=== PATIENT | male | born 2000 | race Caucasian/White ===

== ENCOUNTER → 2019-08-14 17:02 | Outpatient (CLI) | payer OTHER, SELFPAY ==
[2019-08-14 17:59] LABS: Basophils % 0.6 % (0.1-2.0); Eosinophils % 0.8 % (0.1-12.0); Hemoglobin 16.8 g/dL (14.1-18.0); Lymphocytes # 1.9 K/mm3 (0.7-4.5); Lymphocytes % 37.6 % (10-50); Mean Corpuscular HGB Conc 32.2 g/dL (31.8-35.4); Mean Corpuscular Volume 90.1 fl (80-94); Monocytes # 0.4 K/mm3 (0.1-1.0); Monocytes % 6.7 % (1.7-9.3); Neutrophils # 2.8 K/mm3 (1.8-7.8); Neutrophils % 54.2 % (37.0-80.0); Platelet Count 246 K/mm3 (142-424); Red Blood Count 5.77 M/mm3 (4.60-6.20); Red Cell Distribution Width 12.9 % (11.5-17.5); White Blood Count 5.2 K/mm3 (4.5-13.0)
[2019-08-14 18:55] LABS: Alanine Aminotransferase 13 U/L (12-78); Albumin Level 4.8 gm/dL (3.4-5.0); Albumin/Globulin Ratio 1.7 (1.1-1.8); Alkaline Phosphatase 78 U/L (46-116); Amylase 51 U/L (25-115); Anion Gap 15.2 mEq/L (5-15); Aspartate Amino Transferase 6 U/L (15-37); Bilirubin,Total 0.5 mg/dL (0.2-1.0); Blood Urea Nitrogen 8 mg/dL (7-18); Calcium 9.5 mg/dL (8.5-10.1); Carbon Dioxide 25 mmol/L (21.0-32.0); Chloride 102 mmol/L (98-107); Estimated Glomerular Filt Rate 123 ml/min (>60); GFR (African American) 149 ML/MIN (>60); Globulin 2.9 gm/dl (1.3-3.2); Glucose 96 mg/dL (74-106); Lipase 73 u/L (73-393); Potassium 4.2 mmoL/L (3.5-5.1); Sodium 138 mmol/L (136-145); Total Protein,Serum 7.7 gm/dL (6.4-8.2)
[2019-08-16 08:17] LABS: Hep A Ab, IgM Negative (Negative); Hep A Ab, Total Negative (Negative); Hep B Core Ab, Total Negative (Negative)
[2019-08-16 11:45] LABS: Hep B Surface Ab, Qual Non Reactive (.); Hepatitis B Surface Antigen Negative (Negative); Hepatitis C Antibody <0.1 s/co ratio (0.0-0.9)
== END ==
PROVIDERS: Visit Provider Emergency Medicine
DX: R04.2 Hemoptysis (principal); R10.9 Unspecified abdominal pain; R63.0 Anorexia
CPT/HCPCS: 80053; 82150; 83690; 85025; 86704; 86706; 86708; 87340; 87380; 87522

== ENCOUNTER → 2019-10-04 17:33 | Outpatient (CLI) | payer MEDICAID, SELFPAY | PROVIDERS: Visit Provider Emergency Medicine | DX: B19.20 Unspecified viral hepatitis C without hepatic coma (principal); R10.9 Unspecified abdominal pain | CPT/HCPCS: 87522 ==

== ENCOUNTER 2020-05-19 00:10 | Emergency (ER) | payer MEDICAID, SELFPAY ==
[2020-05-19 00:11] VITALS: BP 117/55; PULSE 93; RESP 18; O2SAT 95; BMI 16.7
--- NOTE | 2020-05-19 00:26 | CT_ITS ---
PROCEDURE: CT CERVICAL SPINE WO CON CLINICAL INDICATION: TRAUMA Neck injury with pain, contusion/abrasion or hematoma, cervical sprain/strain, right-sided neck pain and stiffness COMPARISON: CT CSWO CT CERVICAL SPINE W/O CONT from 10/10/2014 TECHNIQUE: Axial images obtained with sagittal and coronal reformats. All CT scans at the facility use one or more dose reduction, viz: automated exposure control, ma/kV adjustment per patient size (including targeted exams where dose is matched to indication, i.e. head), or iterative reconstruction technique. Axial spiral CT scanning performed of the cervical spine beginning at the base of the skull and continuing to the upper T-spine. 3-D multiplanar reconstruction with 3-D manipulation of volumetric data set in image rendering was completed by the radiologist and/or technologist with the supervision of the radiologist on independent workstation. FINDINGS: No fracture nor subluxation is evident. Normal prevertebral soft tissues. Facets, neural foramen and vertebral bodies intact and unremarkable. Normal C1/C2 relationships. Apices of lungs are clear with no acute findings.There is straightening/reversal of the normal lordosis which may be due to patient positioning or muscle spasm. IMPRESSION: No acute fracture. Reversal cervical lordosis Dictated by: Nathan Rosas MD 05/19/2020 06:58 Nathan Rosas MD in [facility] 05/19/2020 06:58
--- NOTE | 2020-05-19 00:26 | CT_ITS ---
PROCEDURE: CT HEAD/BRAIN WO CON CLINICAL INDICATION: TRAUMA Head injury with headache/pain, contusion, abrasion or hematoma COMPARISON: CT HDWO CT HEAD W/O CONTRAST from 08/31/2016 TECHNIQUE: Axial images obtained. All CT scans at the facility use one or more dose reduction, viz: automated exposure control, ma/kV adjustment per patient size (including targeted exams where dose is matched to indication, i.e. head), or iterative reconstruction technique. FINDINGS: No midline shift, mass effect, intracranial hemorrhage, hydrocephalus, or extra-axial fluid collection is evident. The calvarium has an unremarkable appearance. There is opacification of the left mastoid sinus. No sinus air-fluid level. IMPRESSION: No acute intracranial findings. Left mastoid sinus disease Dictated by: Nathan Rosas MD 05/19/2020 06:55 Nathan Rosas MD in [facility] 05/19/2020 06:55
--- NOTE | 2020-05-19 00:26 | ECG_ITS ---
APPROVED REPORT Exam: Resting ECG HR:103 bpm ECG Measurements Heart Rate 103 AXES WI 144 P 74 QRSd 86 QRS 76 QT 324 T 66 QTc 424 <Conclusion> Sinus tachycardia Possible Left atrial enlargement Incomplete RBBB Borderline ECG Electronically signed by : Norm Singleton, 05/19/2020 19:50:22
--- NOTE | 2020-05-19 00:30 | XR_ITS ---
PROCEDURE: XR CHEST 2V CLINICAL HISTORY: fall Posttraumatic pain COMPARISON: CR CXR CHEST(2 VIEWS-NOT PORTABLE) from 06/03/2010 CR CXR CHEST(2 VIEWS-NOT PORTABLE) from 07/30/[address] CHEST W/O CONTRAST from 10/10/2014 CR CXR CHEST(2 VIEWS-NOT PORTABLE) from 12/02/2015 FINDINGS: The cardiomediastinal silhouette and pulmonary vascularity are within normal limits. Calcified node is present in the right perihilar region with a calcified granuloma in the lobe. The remaining clear. No acute bony abnormalities. IMPRESSION: No acute findings. Dictated by: Nathan Rosas MD 05/19/2020 06:39 Nathan Rosas MD in [facility] 05/19/2020 06:39
--- NOTE | 2020-05-19 01:08 | HMH.EDGENADL ---
ED Disposition Clinical Impression: Neck pain Disposition: Home, Self-Care Condition on Discharge: Good Referrals: Dillon Be MD [Primary Care Provider] - - Critical Care Critical Care Time: No Attestation: On 05/19/20, the high probability of a clinically significant, sudden or life threatening deterioration of the following system(s) required my full and direct attention, intervention and personal management. The time I documented below is in addition to time spent performing reported procedures but includes the following listed in this critical care notation. Medical Decision Making - Ramy Inquiry Pt receiving controlled substance: No Vital Signs: 05/19/20 00:11 05/19/20 01:17 Pulse Rate [Right Brachial] 93 H 92 H Respiratory Rate 18 18 Blood Pressure [Right Arm] 117/55 L 119/61 Blood Pressure Mean [Right Arm] 75 80 02 Sat by Pulse Oximetry 95 97 Oxygen Delivery Method Room Air Orders (Tests/Meds): ORDERS Category Date Time Status CT cervical spine wo con Stat Cat Scan 05/19/20 00:[address] head/brain wo con Stat Cat Scan 05/19/20 00:26 Taken Chest XR 2 view (NOT portable) [XR chest 2V] Stat Exams 05/19/20 00:30 Taken EKG Request [ECG Request by /Mariela] Stat Y 05/19/20 00:26 Ordered Medical Decision Narrative: In summary patient presents after a fall. Patient had head trauma but no loss of consciousness, patient on blood thinners. Patient has nonfocal logical exam at this time. Patient complaining of midline spine pain. On examination patient does have tenderness to palpation midline C-spine, patient does not meet Nexus criteria at this time. Due to this patient had CT head and C-spine ordered. These were negative on repeat examination, patient also had chest x-ray and EKG ordered, chest x-ray without acute abnormalities, no fractures, EKG normal 2. Patient discharged home, follow-up with his primary care doctor for further work-up. General Adult HPI - General Chief complaint: Back Pain/Injury Stated complaint: Back neck pain,headache Time Seen by Provider: 05/19/20 00:38 Mode of Arrival: Ambulatory Limitations: No Limitations Description of Symptoms (Recalled from ER Triage Doc. by RN): pt fell from a standing position of a post. no LOC pt c/o of SMITH, medial neck pain and medial lower back pain. - History of Present Illness HPI narrative: Patient presents after a fall. Patient states he was 2 feet high, fell back when he was planting ordonez in the garden. Patient did have head trauma but no loss of consciousness, patient has pain in his neck, started after his fall. Patient has no weakness one side of his body or another, no numbness or tingling, no focal neurological issues. Patient not on blood thinners, no medical problems, surgical history. Patient also complains of chest pain, denies any abdominal pain, pain in extremities. Patient presents with mom at bedside. - Related Data Home Medications Medication Instructions Recorded Confirmed Pantoprazole Sodium [Protonix 40mg 40 mg PO DAILY 10/04/19 10/18/19 tablet] Allergies Allergy/AdvReac Type Severity Reaction Status Date / Time No Known Allergies Allergy Verified 10/18/19 10:56 [facility] History - Hepatitis A Screen Drug use history?: No High risk sexual behaviors?: No History of sexually transmitted infection?: No Currently employed?: No Childcare worker?: No Do you have indoor plumbing?: Yes Do you have electricity?: Yes Attestation statement:: This patient has been screened for Hepatitis A risk factors. I have reviewed the patient's past medical history: Yes Medical History: Reports:: Gastroesophageal Reflux Disease(GERD) Denies:: Cancer, Diabetes Mellitus Type 1, Diabetes Mellitus Type 2, Internal Pacemaker, MRSA, Seizures Other Medical History: Denies: Blood Transfusion Reaction Other Surgeries: Yes: No Previous Surgery, EGD, Other. No: Pacemaker Amputation: No Fractures:
[2020-05-19 01:17] VITALS: BP 119/61; PULSE 92; RESP 18; O2SAT 97
[2020-05-19 01:34] VITALS: BP 118/71; PULSE 67; RESP 16; TEMP 36.6
== END 2020-05-19 01:35 | disposition home or self-care (01) ==
PROVIDERS: Emergency Provider Emergency Medicine; PCP Emergency Medicine
DX: M54.2 Cervicalgia (principal); R51 Headache; W01.0XXA Fall on same level from slipping, tripping and stumbling without subsequent striking against object, initial encounter; Y93.H2 Activity, gardening and landscaping; Y92.017 Garden or yard in single-family (private) house as the place of occurrence of the external cause; K21.9 Gastro-esophageal reflux disease without esophagitis
CPT/HCPCS: 70450; 71046; 72125; 93005; 99283

== ENCOUNTER 2020-05-22 21:09 | Emergency (ER) | payer MEDICAID, SELFPAY ==
--- NOTE | 2020-05-21 21:08 | ECG_ITS ---
APPROVED REPORT Exam: Resting ECG HR:91 bpm ECG Measurements Heart Rate 91 AXES WV 130 P 71 QRSd 84 QRS 78 QT 324 T 74 QTc 398 <Conclusion> Normal sinus rhythm Normal ECG Electronically signed by : Daren Alcaraz, 05/24/2020 06:35:17
[2020-05-22 21:09] VITALS: BP 135/85; PULSE 118; RESP 18; TEMP 37.1; O2SAT 95; BMI 16.7
--- NOTE | 2020-05-22 21:21 | HMH.EDCP ---
ED Disposition Clinical Impression: Costochondritis Disposition: Home, Self-Care Condition on Discharge: Good Additional Instructions: Take Tylenol/ibuprofen as needed for pain. Avoid smoking marijuana as this could exacerbate symptoms due to coughing. Follow-up with primary care physician. Referrals: Dillon Be MD [Primary Care Provider] - - Critical Care Critical Care Time: No Attestation: On 05/22/20, the high probability of a clinically significant, sudden or life threatening deterioration of the following system(s) required my full and direct attention, intervention and personal management. The time I documented below is in addition to time spent performing reported procedures but includes the following listed in this critical care notation. Medical Decision Making - Medical Records Medical records reviewed: Yes: I reviewed the patient's medical records. - Ramy Inquiry Pt receiving controlled substance: No Vital Signs: 05/22/20 21:09 05/22/20 21:30 Temperature 98.8 F Temperature Source Oral Pulse Rate [Right] 118 H 74 Respiratory Rate 18 18 Blood Pressure [Right Arm] 135/85 112/74 Blood Pressure Mean [Right Arm] 101 86 Blood Pressure Source [Right Arm] Automatic Cuff Automatic Cuff Blood Pressure Position [Right Arm] Supine Supine 02 Sat by Pulse Oximetry 95 96 Oxygen Delivery Method Room Air Room Air - Lab Data Lab Results 05/22/20 21:10: WBC 6.8, RBC 5.45, Hgb 17.0, Hct 47.3, MCV 86.7, MCH 31.2, MCHC 36.0 H, RDW 13.1, Plt Count 243, MPV 8.0, Neut % (Auto) 61.1, Lymph % (Auto) 32.5, Isabela % (Auto) 5.6, Eos % (Auto) 0.3, Baso % (Auto) 0.5, Neut # (Auto) 4.2, Lymph # (Auto) 2.2, Isabela # (Auto) 0.4, Eos # (Auto) 0.0, Baso # (Auto) 0.0 05/22/20 21:10: Sodium 142, Potassium 3.7, Chloride 102, Carbon Dioxide 29, Anion Gap 14.7, BUN 12, Creatinine 0.80, Estimated Creat Clear 103, Estimated GFR 122, Est GFR ( Amer) 148, Glucose 97, Calcium 10.2, Troponin I < 0.01 Result diagrams: 05/22/20 21:10 05/22/20 21:10 Orders (Tests/Meds): ORDERS Category Date Time Status XR chest 2V Stat Exams 05/22/20 21:23 Taken Troponin I Q3H Lab 05/23/20 00:30 Ordered Troponin I Q3H Lab 05/23/20 03:30 Ordered Medical Decision Narrative: 19-year-old male with history of anxiety and marijuana use who presents emergency department for evaluation chest pain. Pain has been present since last Wednesday and is worse with deep inspiration. Patient has history of marijuana use that causes him to cough often, sometimes violently. Differential diagnosis includes but is not limited to pleurisy, costochondritis, myocardial infarction, anxiety attack, and less likely PE. PERC negative. Labs obtained and normal with no acute electrolyte abnormalities requiring correction. Troponin negative. Due to duration of symptoms being greater than 4 days, low concern for cardiac chest pain and no second troponin indicated at this time. EKG obtained immediately upon arrival negative for acute ST elevation, ST depression, or T wave inversions concerning for ACS. Chest x-ray obtained and negative for evidence of pneumonia or pneumothorax, with no identified rib fractures. Patient remained hemodynamically stable in emergency department symptoms are well controlled at this time. Advised on strict return precautions and the importance of following up with PCP. Advised to stop smoking marijuana as this could exacerbate symptoms. Advised on treatment of pain with [id number]-nhvusfw medications. Safe to discharge at this time. Chest Pain HPI - General Stated Complaint: Chest Pain Time Seen by Provider: 05/22/20 21:15 Mode of Arrival: Ambulatory Source of Information: Patient Limitations: No Limitations - History of Present Illness HPI narrative: 19-year-old male with past medical history of anxiety and marijuana use who presents the emergency department for evaluation of chest pain. Patient states that chest pain
--- NOTE | 2020-05-22 21:23 | XR_ITS ---
PROCEDURE: XR CHEST 2V CLINICAL HISTORY: chest pain COMPARISON: CR CXR CHEST(2 VIEWS-NOT PORTABLE) from 07/30/[address] CHEST W/O CONTRAST from 10/10/2014 CR CXR CHEST(2 VIEWS-NOT PORTABLE) from 12/02/2015 CR XR CHEST 2V from 05/19/2020 FINDINGS: The cardiomediastinal silhouette and pulmonary vascularity are within normal limits. The lungs are clear without infiltrates, suspicious nodules, or pleural effusions. No acute bony abnormalities. IMPRESSION: No acute findings. Dictated by: Nathan Rosas MD 05/23/2020 05:26 Nathan Rosas MD in [facility] 05/23/2020 05:26
[2020-05-22 21:30] VITALS: BP 112/74; PULSE 74; RESP 18; O2SAT 96
[2020-05-22 22:00] VITALS: BP 124/78; PULSE 79; RESP 18; O2SAT 98
[2020-05-22 22:09] LABS: Basophils % 0.5 % (0.1-2.0); Eosinophils % 0.3 % (0.1-12.0); Hematocrit 47.3 % (42.0-52.0); Lymphocytes # 2.2 K/mm3 (0.7-4.5); Lymphocytes % 32.5 % (10-50); Mean Corpuscular Hemoglobin 31.2 pg (27.0-31.2); Mean Corpuscular Volume 86.7 fl (80-94); Monocytes # 0.4 K/mm3 (0.1-1.0); Monocytes % 5.6 % (1.7-9.3); Neutrophils # 4.2 K/mm3 (1.8-7.8); Neutrophils % 61.1 % (37.0-80.0); Platelet Count 243 K/mm3 (142-424); Red Blood Count 5.45 M/mm3 (4.60-6.20); Red Cell Distribution Width 13.1 % (11.5-17.5); White Blood Count 6.8 K/mm3 (4.8-10.8)
[2020-05-22 22:14] LABS: Chloride 102 mmol/L (98-107); Potassium 3.7 mmoL/L (3.5-5.1); Sodium 142 mmol/L (136-145)
[2020-05-22 22:17] LABS: Anion Gap 14.7 mEq/L (5-15); Blood Urea Nitrogen 12 mg/dl (9-20); Calcium 10.2 mg/dl (8.4-10.2); Carbon Dioxide 29 mmol/L (22.0-30.0); Creatinine Clearance Estimated 103 mL/min (50-200); Estimated Glomerular Filt Rate 122 ml/min (>60); GFR (African American) 148 ML/MIN (>60); Glucose 97 mg/dl (74-100)
[2020-05-22 22:30] VITALS: BP 121/79; PULSE 94; RESP 18; O2SAT 98
[2020-05-22 22:36] LABS: Troponin I < 0.01 ng/ml (0.00-0.034)
[2020-05-22 22:56] VITALS: BP 112/74; PULSE 75; RESP 16; TEMP 37.1; O2SAT 99
== END 2020-05-22 22:58 | disposition home or self-care (01) ==
PROVIDERS: Emergency Provider Emergency Medicine; PCP Emergency Medicine
DX: M94.0 Chondrocostal junction syndrome [Tietze] (principal); K21.9 Gastro-esophageal reflux disease without esophagitis; F41.9 Anxiety disorder, unspecified; F12.10 Cannabis abuse, uncomplicated
CPT/HCPCS: 71046; 80048; 84484; 85025; 93005; 99283

== ENCOUNTER 2020-05-27 09:23 | Emergency (ER) | payer MEDICAID, SELFPAY ==
--- NOTE | 2020-05-27 09:35 | US_ITS ---
PROCEDURE: US TESTICULAR CLINICAL INDICATION: pain Left testicular pain with possible lump COMPARISON: No exams were available for comparison FINDINGS: The right testicle is 4.5 x 2.4 x 3.2 cm. Blood flow is present. No testicular or scrotal mass on the right. Left testicle is 4.4 x 2.4 x 2.9 cm with blood flow noted to the testicle. There is a small left varicocele which may account for the palpable abnormality. IMPRESSION: Small left varicocele otherwise negative testicular ultrasound Dictated by: Nathan Rosas MD 05/27/2020 13:23 Nathan Rosas MD in [facility] 05/27/2020 13:23
[2020-05-27 09:41] VITALS: BP 140/83; PULSE 99; RESP 18; TEMP 36.7; O2SAT 100; BMI 17.2
[2020-05-27 10:20] LABS: Microscopic, Urine URINE MICROSCOPIC (MICROSCOPIC)
[2020-05-27 10:26] LABS: Appearance,Urine CLEAR (Clear); Bilirubin,Urine Negative (Negative); Blood, Urine Negative (Negative); Color,Urine YELLOW (Yellow); Glucose,Urine (UA) Negative (Negative); Ketones,Urine Negative (Negative); Leukocyte Esterase,Urine Negative (Negative); Nitrate,Urine Negative (Negative); Protein,Urine TRACE (Negative); Specific Gravity, Urine 1.025 (1.005-1.030); Urobilinogen,Urine 0.2 EU/dl (0.2)
[2020-05-27 10:44] LABS: RBC,Urine Occasional #/hpf (0-3); Squamous Epithelial Cell,Urine Occasional #/hpf (0-5); WBC,Urine Occasional #/hpf (0-3)
[2020-05-27 10:45] LABS: Bacteria,Urine 2+ /lpf
--- NOTE | 2020-05-27 12:53 | HMH.EDGENADL ---
ED Disposition Clinical Impression: Left varicocele UTI (urinary tract infection) Qualifiers: Urinary tract infection type: acute cystitis Hematuria presence: without hematuria Qualified Code(s): N30.00 - Acute cystitis without hematuria Disposition: Home, Self-Care Condition on Discharge: Good Instructions: DI for Varicocele Prescriptions: Ibuprofen [Ibuprofen 800mg Tablet] 800 mg PO TIDP PRN #20 tab PRN Reason: Moderate Pain Transmission Status: Pending to [facility] cephALEXin [Keflex 500mg Cap] 500 mg PO BID 7 Days #14 cap Transmission Status: Pending to [facility] Referrals: Dillon Be MD [Primary Care Provider] - Gustavo Tee MD [Staff Physician] - - Critical Care Critical Care Time: No Attestation: On 05/27/20, the high probability of a clinically significant, sudden or life threatening deterioration of the following system(s) required my full and direct attention, intervention and personal management. The time I documented below is in addition to time spent performing reported procedures but includes the following listed in this critical care notation. Medical Decision Making - Medical Records Medical records reviewed: Yes: I reviewed the patient's medical records. - Ramy Inquiry Pt receiving controlled substance: No Vital Signs: 05/27/20 09:41 Temperature 98.1 F Temperature Source Oral Pulse Rate [Radial] 99 H Respiratory Rate 18 Blood Pressure [Right Arm] 140/83 Blood Pressure Mean [Right Arm] 102 Blood Pressure Source [Right Arm] Automatic Cuff Blood Pressure Position [Right Arm] Sitting 02 Sat by Pulse Oximetry 100 Oxygen Delivery Method Room Air - Lab Data Lab Results 05/27/20 09:35: Urine Color Yellow, Urine Appearance Clear, Urine pH 6.0, Ur Specific [place] 1.025, Urine Protein Trace, Urine Glucose (UA) Negative, Urine Ketones Negative, Urine Blood Negative, Urine Nitrate Negative, Urine Bilirubin Negative, Urine Urobilinogen 0.2, Ur Leukocyte Esterase Negative, Urine RBC Occasional, Urine WBC Occasional, Ur Squamous Epith Cells Occasional, Urine Bacteria 2+ Orders (Tests/Meds): ED MEDICATIONS Discontinued Medications Generic Name Dose Route Start Last Admin Trade Name Freq PRN Reason Stop Dose Admin Ibuprofen 800 mg 05/27/20 09:35 05/27/20 09:48 Motrin 400mg Tablet PO 05/27/20 09:36 800 mg ONCE ONE Administration ORDERS Category Date Time Status Urine Culture Stat Micro 05/27/20 09:35 Received - Radiology Data #1 Image(s): Other (US scrotum) IMPRESSION: Small left varicocele otherwise negative testicular ultrasound - Reevaluation(s) Time: 13:32 Reevaluation #1: On reevaluation, patient is feeling better. Does have evidence of a small varicocele. Likely contributing to his discomfort. There is also some bacteria in his urine, however appears to be contaminated. Patient will be on a short course of antibiotics. Given follow-up with urology. Given strict return precautions. Verbalized understanding. Medical Decision Narrative: 19-year-old male presenting with testicular pain. Ultrasound will be obtained for possible torsion. Work-up initiated. General Adult HPI - General Chief complaint: PAIN Stated complaint: penis pain Time Seen by Provider: 05/27/20 09:45 Mode of Arrival: Ambulatory Limitations: No Limitations Description of Symptoms (Recalled from ER Triage Doc. by RN): States that he has had left testicle pain since 8 am. states there is a knot on the left testicle. - History of Present Illness HPI narrative: This is a 19-year-old male presenting to the emergency department with testicular pain. Patient states that he woke up this morning and he felt a knot in his left testicle. He had never noticed this before. He states that he started manipulating it and had some tenderness. It is dull in nature. Nonradiating. He is not having any associated hematuria. No fevers
[2020-05-27 13:49] VITALS: BP 130/69; PULSE 87; RESP 20; TEMP 37; O2SAT 100
== END 2020-05-27 13:51 | disposition home or self-care (01) ==
PROVIDERS: Emergency Provider Emergency Medicine; PCP Emergency Medicine
DX: I86.1 Scrotal varices (principal); N30.00 Acute cystitis without hematuria; K21.9 Gastro-esophageal reflux disease without esophagitis
CPT/HCPCS: 76870; 81001; 87086; 99282

== ENCOUNTER → 2020-06-04 17:30 | Outpatient (CLI) | payer MEDICAID, SELFPAY ==
[2020-06-04 18:39] LABS: Basophils # 0.1 K/mm3 (0-0.2); Basophils % 0.5 % (0.1-2.0); Eosinophils % 0.3 % (0.1-12.0); Hematocrit 46.3 % (42.0-52.0); Hemoglobin 15.7 g/dL (14.1-18.0); Lymphocytes # 2.4 K/mm3 (0.7-4.5); Lymphocytes % 20.3 % (10-50); Mean Corpuscular HGB Conc 33.8 g/dL (31.8-35.4); Mean Corpuscular Volume 88.6 fl (80-94); Mean Platelet Volume 8.6 fl (7.4-10.4); Monocytes # 0.5 K/mm3 (0.1-1.0); Monocytes % 3.9 % (1.7-9.3); Neutrophils # 8.7 K/mm3 (1.8-7.8); Platelet Count 275 K/mm3 (142-424); Red Blood Count 5.22 M/mm3 (4.60-6.20); Red Cell Distribution Width 13.2 % (11.5-17.5); White Blood Count 11.6 K/mm3 (4.8-10.8)
[2020-06-04 18:43] LABS: Chloride 102 mmol/L (98-107); Sodium 141 mmol/L (136-145)
[2020-06-04 18:45] LABS: Blood Urea Nitrogen 15 mg/dl (9-20); Estimated Glomerular Filt Rate 142 ml/min (>60); GFR (African American) 172 ML/MIN (>60)
[2020-06-04 18:46] LABS: Alanine Aminotransferase 12 U/L (12-78); Albumin Level 4.7 g/dl (3.5-5.0); Albumin/Globulin Ratio 1.8 (1.1-1.8); Alkaline Phosphatase 57 U/L (38-126); Aspartate Amino Transferase 18 U/L (17-59); Bilirubin,Total 0.6 mg/dl (0.2-1.3); Calcium 9.8 mg/dl (8.4-10.2); Carbon Dioxide 27 mmol/L (22.0-30.0); Globulin 2.6 g/dL (1.3-3.2); Glucose 126 mg/dl (74-100); Total Protein,Serum 7.3 g/dl (6.3-8.2)
[2020-06-04 19:03] LABS: Erythrocyte Sedimentation Rate 4 mm/hr (0-15)
== END ==
PROVIDERS: Visit Provider Emergency Medicine
DX: R53.83 Other fatigue (principal)
CPT/HCPCS: 80053; 85025; 85651

== ENCOUNTER 2020-06-21 15:00 | Outpatient (RCR) | payer MEDICAID, SELFPAY ==
--- NOTE | 2020-06-12 10:57 | HMH.PTOPEV ---
PT Outpatient Evaluation Rehab PT Outpatient Evaluation Start: 06/12/20 10:45 Freq: Status: Active Protocol: Document 06/12/20 10:45 THU (Rec: 06/12/20 10:56 THU [id number]) Electronically Signed By Mann Apple, PT 06/12/20 10:45 Outpatient Therapy Subjective History Subjective History Patient is a 19 year old male presenting to outpatient PT with reports of R cervicothoracic spine pain starting approximately 1 month ago after a fall at home landing on his head. Cranial and C-spine CT scans negative. Main complaint is CT junction pain. No reports of radicular symptoms. No other comrobidities to report. Chief Complaint Pain,Stiff Symptom Type Sharp Symptoms Relieved By Rest/Positioning,Ice,OTC Meds Symptoms Aggravated By Sitting Prior Functional Limitations None Current Functional Limitations Reaching,Lifting,Sitting Level of pain today (0-10) 6 Pain scale - at its best (0-10) 3 Pain scale - at its worst (0-10) 8 Cervical Eval Palpation Cervical Muscles R Cervical Paraspinal,R Upper Trapezius,R Thoracic Paraspinals Posture Head/C-Spine Posture Sitting Position C-Spine Flattened Head/C-Spine Posture Standing Position C-Spine Flattened Flexibility Deficits Upper Trapezius Muscle Length (R) Mild Tightness Levaetor Scapulae Muscle Length (R) Mild Tightness Pectoralis Minor Muscle Length (R) Mild Tightness Passive Joint Mobility Cervical PIVM WNL: R OA L OA R AA L AA R C2/3 L C2/3 R C3/4 L C3/4 R C4/5 L C4/5 R C5/6 L C5/6 R C6/7 L C6/7 R C7/T1 L C7/T1 AROM Cervical Spine Extension Active Range of 54 pain Motion (degrees) Cervical Spine Flexion Active Range of 44 Motion (degrees) Cervical Spine Right Lateral Flexion 36 Active Range of Motion (degrees) Cervical Spine Left Lateral Flexion 44 Active Range of Mot
== END 2020-06-21 16:03 | disposition home or self-care (01) ==
LOC: PT 15:00
PROVIDERS: Visit Provider Emergency Medicine
DX: M54.2 Cervicalgia (principal)
CPT/HCPCS: 97010; 97014; 97035; 97110; 97163; G0283

== ENCOUNTER → 2020-07-02 13:01 | Outpatient (CLI) | payer MEDICAID, SELFPAY ==
--- NOTE | 2020-07-02 13:01 | MR_ITS ---
PROCEDURE: MR HEAD/BRAIN WO CON CLINICAL INDICATION: headaches and dizziness PT C/O HEADACHES AND DIZZINESS SINCE FALL ON 05/19/20 COMPARISON: CT CT HEAD/BRAIN WO CON from 05/19/2020 TECHNIQUE: Routine multiplanar multi echo sequences are performed without gadolinium enhancement. FINDINGS: No midline shift, mass effect, intracranial hemorrhage, or hydrocephalus is evident. The cerebellopontine angles, cerebellum, and brainstem have an unremarkable appearance. Unremarkable white matter signal intensity. No evidence of acute infarction. The hippocampal gyri and temporal lobes have an unremarkable appearance. The pituitary, optic chiasm, corpus callosum, and craniocervical junction are unremarkable. There is a small amount fluid signal intensity in both mastoid sinuses slightly more prominent on the left. Small retention cyst is present in the left maxillary sinus anteriorly. IMPRESSION: 1. No acute intracranial findings. 2. Bilateral mastoid effusions Dictated by: Nathan Rosas MD 07/03/2020 10:41 Nathan Rosas MD in [facility] 07/03/2020 10:41
--- NOTE | 2020-07-02 13:01 | MR_ITS ---
PROCEDURE: MR CERVICAL SPINE WO CON CLINICAL INDICATION: neck pain PT C/O HEADACHES AND DIZZINESS AND NECK PAIN SINCE FALL COMPARISON: No exams were available for comparison TECHNIQUE: Standard multiplanar multiecho sequences are performed without contrast. 3-D MIP and myelographic images are also rendered and reviewed FINDINGS: Nonspecific straightening of the cervical lordosis. The disc spaces are well preserved. No disc herniation. No canal stenosis or foraminal stenosis. No significant degenerative change. Spinal cord has an unremarkable appearance. The craniocervical junction is unremarkable. IMPRESSION: Negative MRI of the cervical spine Dictated by: Nathan Rosas MD 07/03/2020 11:45 Nathan Rosas MD in [facility] 07/03/2020 11:45
== END ==
PROVIDERS: PCP Emergency Medicine; Visit Provider Emergency Medicine
DX: R42 Dizziness and giddiness; M54.2 Cervicalgia; R51.9 Headache, unspecified
CPT/HCPCS: 70551; 72141; 76376

== ENCOUNTER → 2022-09-18 16:00 | Outpatient (CLI) | payer MEDICAID, SELFPAY ==
[2022-09-22 21:12] LABS: Neisseria gonorrhoeae, NAA Negative (Negative)
== END ==
PROVIDERS: PCP Nurse Practitioner Family; Visit Provider Nurse Practitioner Family
DX: Z20.2 Contact with and (suspected) exposure to infections with a predominantly sexual mode of transmission (principal)
CPT/HCPCS: 87491; 87591

== ENCOUNTER 2022-09-18 17:40 | Emergency (ER) | payer MEDICAID, SELFPAY ==
[2022-09-18 19:11] VITALS: BP 124/75; PULSE 85; RESP 16; TEMP 36.7; O2SAT 98; BMI 21.2
--- NOTE | 2022-09-18 19:16 | EXP.UTC ---
Discharge Plan Disposition Patient Disposition: Home, Self-Care Condition: Good Prescriptions Prescriptions: New albuterol sulfate [Proventil HFA] 90 mcg/actuation HFA aerosol inhaler 1 inh inhalation Q6H PRN (Reason: shortness of breath or wheezing) Qty: 8.5 0RF ospjrcwahmqmbru-xnotljajo-YE [Bromfed DM] 2-30-10 mg/5 mL Syrup 10 ml PO Q4H PRN (Reason: Cough) Qty: 200 0RF amoxicillin-pot clavulanate 875-125 mg Tablet 1 tab PO Q12H Qty: 20 0RF fluticasone propionate [Flonase Allergy Relief] 50 mcg/actuation spray,suspension 1 spray intranasal DAILY Qty: 16 0RF Rx Instructions: administer into each nostril Referrals Follow up/Referrals: Dillon Be MD [Primary Care Provider] - See instructions Activity Restrictions/Add. Instructions Additional Instructions/Restrictions: Start antibiotic today. Be sure to complete entire prescription even if feeling better Monitor temp. Tylenol every 4 hours as needed and / or ibuprofen every 6 hours as needed ( As long as your primary care physician has told you that it ok to take both. For fever/aches/pains ER if no less than 101 despite Tylenol or Motrin Humidifier/vaporizer or hot steamy shower Inhaler every 4-6 hours as needed like we discussed. If unsure how to use it, ask pharmacist to demonstrate how. Should help open airways and improve cough, wheezing, and shortness of breath *Flonase 1 sprays in each nostril daily but be aware that it may take 2-3 days before you notice improvement *Bromfed may cause drowsiness. Know how it effects you before driving, caring for small child, . No other antihistamines/allergy medications while taking bromfed *Start steroid today. Helps with inflammation therefore, cough and wheezing. Follow directions on the package. Reviewed side effects. Patient reports taking them before. Follow up IMMEDIATELY for new or worsening of symptoms OR no noticeable improvement over the next 48-72 hours. 911 immediately for any life threatening symptoms such as chest pain or difficulty breathing Clinical Impressions Clinical Impression: Sinusitis Instructions Patient Instructions: DI for Sinusitis, Sinusitis Discharge ED Provider: Lee Ann Marlow [facility] [place] HPI General Stated complaint: lissa, cough Mode of Arrival: Ambulatory Source of Information: Patient Limitations: No Limitations Time Seen by Provider: 09/18/22 19:16 Description of Symptoms (Recalled from Triage Doc. by RN): pt comes in with c/o wheezing cough, congestion. ongoing for 2 weeks HEENT Symptoms (Recalled from RN notes): Yes Resp Symptoms (Recalled from RN notes): Yes Skin Symptoms (Recalled from RN notes): No MS Symptoms (Recalled from RN notes): No Functional Status (Recalled from RN notes): n/a History of Present Illness Provider Complaint: Patient state that he hasnt felt well for about 2 weeks States that he has been having sinus pain and pressure, drainage in the back of throat, cough and at times states that he hears a wheezing sound from his nose and cough States that today he was still not feeling well so he came in to get checked Related Data Previous Rx's Medication Instructions Recorded albuterol sulfate 90 mcg/actuation 1 inh inhalation Q6H PRN shortness 09/18/22 aerosol inhaler (Proventil HFA) of breath or wheezing #8.5 grams amoxicillin 875 mg-potassium 1 tab PO Q12H #20 tabs 09/18/22 clavulanate 125 mg tablet ojifsrxzysuvqud-qsrzlixwsqjpnek-GH 10 ml PO Q4H PRN Cough #200 mL 09/18/22 2 mg-30 mg-10 mg/5 mL oral syrup (Bromfed DM) fluticasone propionate 50 1 spray intranasal DAILY #16 grams 09/18/22 mcg/actuation nasal spray,suspension (Flonase Allergy Relief) Allergies Allergy/AdvReac Type Severity Reaction Status Date / Time No Known Allergies Allergy Verified 09/18/22 19:13 Worker's Comp Is this a Worker's Comp case?: No [facility] Disclaimer: The informati
[2022-09-18 19:35] VITALS: BP 124/75; PULSE 85; RESP 16; TEMP 36.7
== END 2022-09-18 19:38 | disposition home or self-care (01) ==
PROVIDERS: Emergency Provider Nurse Practitioner; PCP Emergency Medicine
DX: J32.9 Chronic sinusitis, unspecified (principal)
CPT/HCPCS: 99212; G0463

== ENCOUNTER 2023-06-10 13:25 | Emergency (ER) | payer MEDICAID, SELFPAY ==
[2023-06-10 13:27] VITALS: BP 150/86; PULSE 82; RESP 16; TEMP 36.6; O2SAT 98; BMI 19.8
[2023-06-10 14:01] VITALS: BP 127/76; PULSE 85; O2SAT 98
[2023-06-10 14:05] LABS: Influenza A, PCR Not Detected (NotDetected); Influenza B, PCR Not Detected (NotDetected)
--- NOTE | 2023-06-10 14:20 | XR_ITS ---
FINAL REPORT TECHNIQUE: Chest PA & Lateral CLINICAL HISTORY: cough x few wks, flu like symptoms COMPARISON: 05/22/2020 FINDINGS: 2 views of the chest were performed. The heart size is normal. The mediastinum is within normal limits. There is no acute cardiopulmonary process. There are no pleural effusions. There is no pneumothorax. The bony thorax appears intact. A calcified right hilar node is identified. IMPRESSION: No acute cardiopulmonary process. Reviewed, Interpreted and Dictated by Haseeb Salas MD Transcribed by Lea Tripathi Authenticated and [facility]
[2023-06-10 14:30] VITALS: BP 128/84; PULSE 88; RESP 16; O2SAT 98
[2023-06-10 14:37] LABS: Coronavirus 19, PCR Detected (NotDetected)
--- NOTE | 2023-06-10 14:55 | HMH.EDGENADL ---
Discharge Plan Disposition Patient Disposition: Home, Self-Care Condition: Good Prescriptions Prescriptions: New ondansetron 4 mg tablet,disintegrating 4 mg PO Q8H PRN (Reason: nausea and vomiting) 4 Days Qty: 12 0RF fluticasone propionate [Flonase Allergy Relief] 50 mcg/actuation spray,suspension 1 spray intranasal DAILY Qty: 16 0RF Rx Instructions: administer into each nostril Zyrtec 10 mg capsule 10 mg PO DAILY Qty: 30 0RF No Action albuterol sulfate [Proventil HFA] 90 mcg/actuation HFA aerosol inhaler 1 inh inhalation Q6H PRN (Reason: shortness of breath or wheezing) Qty: 8.5 0RF euxbsvncgsqksxg-sxncupczz-UE [Bromfed DM] 2-30-10 mg/5 mL Syrup 10 ml PO Q4H PRN (Reason: Cough) Qty: 200 0RF amoxicillin-pot clavulanate 875-125 mg Tablet 1 tab PO Q12H Qty: 20 0RF fluticasone propionate [Flonase Allergy Relief] 50 mcg/actuation spray,suspension 1 spray intranasal DAILY Qty: 16 0RF Rx Instructions: administer into each nostril Referrals Follow up/Referrals: Dillon Be MD [Primary Care Provider] - See instructions Activity Restrictions/Add. Instructions Additional Instructions/Restrictions: You were evaluated in the emergency department today. You tested positive for COVID-19. Please roll picker your prescriptions and use for symptoms. You may also take Tylenol and ibuprofen as well as ooum-pxl-krxlyvz cold medications. Make sure that you are not doubling up on acetaminophen. Follow-up with your primary care provider for reassessment. Return to the emergency department for new or worsening symptoms. Clinical Impressions Clinical Impression: COVID-19 Instructions Patient Instructions: DI for COVID-19 (Suspected or Confirmed ) Discharge ED Provider: Roseline Valdovinos General Adult HPI General Chief complaint: Upper Respiratory Infection Stated complaint: nausea, cough, cl[place] vomiting body ache fever Time Seen by Provider: 06/10/23 14:18 Mode of Arrival: Ambulatory Source of Information: Patient Limitations: No Limitations Description of Symptoms (Recalled from ER Triage Doc. by RN): Presents to ED with c/o N/V/body aches/cough since yesterday. Patient reports taking 1g Tylenol and 400mg Ibuprofen [employer] with no relief. Denies fever [employer] History of Present Illness HPI narrative: This patient is a 22-year-old male who denies significant past medical history presenting to the emergency department for evaluation with concern for cough for several weeks as well as onset of nausea, vomiting, body aches, and worsened cough since yesterday. He took Tylenol and ibuprofen earlier in the day without good improvement. No fever, chest pain, shortness of breath, abdominal pain, change in bowel movements, rashes, or swelling noted. Related Data Previous Rx's Medication Instructions Recorded albuterol sulfate 90 mcg/actuation 1 inh inhalation Q6H PRN shortness 09/18/22 aerosol inhaler (Proventil HFA) of breath or wheezing #8.5 grams amoxicillin 875 mg-potassium 1 tab PO Q12H #20 tabs 09/18/22 clavulanate 125 mg tablet hxyzbfgxgdwqddu-tbmppnoqekvyant-EQ 10 ml PO Q4H PRN Cough #200 mL 09/18/22 2 mg-30 mg-10 mg/5 mL oral syrup (Bromfed DM) fluticasone propionate 50 1 spray intranasal DAILY #16 grams 09/18/22 mcg/actuation nasal spray,suspension (Flonase Allergy Relief) cetirizine 10 mg capsule (Zyrtec) 10 mg PO DAILY allergy symptoms 06/10/23 #30 caps fluticasone propionate 50 1 spray intranasal DAILY #16 grams 06/10/23 mcg/actuation nasal spray,suspension (Flonase Allergy Relief) ondansetron 4 mg disintegrating 4 mg PO Q8H PRN nausea and 06/10/23 tablet vomiting 4 days #12 tabs Allergies Allergy/AdvReac Type Severity Reaction Status Date / Time No Known Allergies Allergy Verified 09/18/22 19:13 [facility] Disclaimer: The information contained in this section may have been updated after the patient was seen, as this information can be updated by othe
[2023-06-10 14:57] LABS: Basophils % 0.2 % (0.1-2.0); Eosinophils # 0.1 K/mm3 (0.0-0.4); Eosinophils % 1.2 % (0.1-12.0); Hematocrit 51.5 % (42.0-52.0); Lymphocytes # 0.6 K/mm3 (0.7-4.5); Lymphocytes % 7.8 % (10-50); Mean Corpuscular Hemoglobin 28.3 pg (27.0-31.2); Mean Corpuscular Volume 85.7 fl (80-94); Mean Platelet Volume 8.6 fl (7.4-10.4); Monocytes # 0.6 K/mm3 (0.1-1.0); Monocytes % 7.9 % (1.7-9.3); Neutrophils # 6.3 K/mm3 (1.8-7.8); Neutrophils % 82.9 % (37.0-80.0); Platelet Count 182 K/mm3 (142-424); Red Blood Count 6.01 M/mm3 (4.60-6.20); Red Cell Distribution Width 13.6 % (11.5-17.5); White Blood Count 7.6 K/mm3 (4.8-10.8)
[2023-06-10 15:01] VITALS: BP 135/77; PULSE 81; RESP 16; O2SAT 98
[2023-06-10 15:02] LABS: Chloride 104 mmol/L (98-107); Potassium 3.7 mmoL/L (3.5-5.1); Sodium 140 mmol/L (136-145)
[2023-06-10 15:04] LABS: Blood Urea Nitrogen 12 mg/dl (9-20); Creatinine Clearance Estimated 106 mL/min (50-200); Estimated Glomerular Filt Rate 104 ml/min (>60); GFR (African American) 125 ML/MIN (>60)
[2023-06-10 15:05] LABS: Alanine Aminotransferase 26 U/L (12-78); Albumin Level 4.5 g/dl (3.5-5.0); Albumin/Globulin Ratio 1.6 (1.1-1.8); Alkaline Phosphatase 72 U/L (38-126); Anion Gap 17.7 mEq/L (5-15); Aspartate Amino Transferase 19 U/L (17-59); Bilirubin,Total 0.6 mg/dl (0.2-1.3); Calcium 8.5 mg/dl (8.4-10.2); Carbon Dioxide 22 mmol/L (22.0-30.0); Globulin 2.8 g/dL (1.3-3.2); Glucose 74 mg/dl (74-100); Lipase 35 U/L (23-300); Total Protein,Serum 7.3 g/dl (6.3-8.2)
--- NOTE | 2023-06-10 15:06 | PC.NURSE ---
Rounded on pt. No needs voiced at this time. Call light within reach.
--- NOTE | 2023-06-10 15:26 | PC.NURSE ---
rounded on pt, pt updated on POC call light in reach, visitor at BS
[2023-06-10 15:31] VITALS: BP 126/81; PULSE 75; RESP 18; TEMP 36.6; O2SAT 98
== END 2023-06-10 15:39 | disposition home or self-care (01) ==
PROVIDERS: Emergency Provider Emergency Medicine; PCP Emergency Medicine
DX: U07.1 COVID-19 (principal); R51.9 Headache, unspecified; R11.2 Nausea with vomiting, unspecified
CPT/HCPCS: 71046; 80053; 83690; 85025; 87636; 96361; 96374; 96375; 99285; J0131; J2405